=== PATIENT | female | born 1990 | race Caucasian/White ===

== ENCOUNTER 2018-02-15 16:31 | Emergency (ER) | payer OTHER ==
[2018-02-15] MEDS ORDERED: NS 1,000 ML IV ONE (16:43)
--- NOTE | 2018-02-15 16:52 | CPEKG ---
Heart Rate: 60 RR Interval: 1000 P-R Interval: 148 QRSD Interval: 92 QT Interval: 400 QTC Interval: 400 P [place]: 63 QRS [place]: 38 T Wave [place]: 37 EKG Severity - BORDERLINE ECG - EKG Impression: SINUS RHYTHM EKG Impression: PROBABLE LEFT ATRIAL ABNORMALITY Electronically Signed By: Shayna Sanchez 15-Feb-2018 21:04:21
--- NOTE | 2018-02-15 17:14 | EDPHY ---
H & P Time Seen by Provider: 02/15/18 16:43 HPI/ROS: CHIEF COMPLAINT: Palpitations HISTORY OF PRESENT ILLNESS: 23-year-old female with a history of asthma presents with palpitations. Onset of intermittent palpitations yesterday. The palpitations feel like a flip in her chest and then a fluttering sensation. Associated with dizziness today. The palpitations last up to 15 min at a time. No chest pain or shortness of breath. She has a history of palpitations in the past, but has never had the palpitations assessed. REVIEW OF SYSTEMS: Constitutional: No fever, no recent illness Eyes: No visual changes ENT: No sore throat Respiratory: No cough, no shortness of breath Cardiac: No chest pain Gastrointestinal: no vomiting, no abdominal pain Genitourinary: no dysuria Musculoskeletal: No leg pain or swelling Skin: No rash Neurological: No headache, no weakness Psychiatric: No depression Past Medical/Surgical History: Asthma Fibromyalgia Social History: Single Smoking Status: Never smoked Physical Exam: General Appearance: Alert, pleasant Eyes: Pupils equal and round, no conjunctival pallor ENT, Mouth: Mucous membranes moist Neck: Normal inspection Respiratory: Lungs are clear to auscultation Cardiovascular: Regular rate and rhythm, no murmur Gastrointestinal: Abdomen is soft and nontender Neurological: A&O, nonfocal, normal gait Skin: Warm and dry Extremities: Nontender, no pedal edema Psychiatric: Mood and affect normal Constitutional: Initial Vital Signs Temperature (C) 36.8 C 02/15/18 16:36 Heart Rate 64 02/15/18 16:36 Respiratory Rate 18 02/15/18 16:36 Blood Pressure 121/70 H 02/15/18 16:36 O2 Sat (%) 97 02/15/18 16:36 O2 Delivery Mode Room Air Allergies/Adverse Reactions: hydroxychloroquine sulfate [From Plaquenil] Allergy (Mild, Verified 11/14/10 13: 19) Rash Home Medications: Medication Instructions Recorded LYRICA 02/15/18 Singulair 02/15/18 Synthroid 02/15/18 traMADol HCL/ACETAMINOPHEN 02/15/18 Medical Decision Making - Diagnostics EKG Interpretation: EKG interpreted by me reveals NSR, rate 60, normal intervals, no ST/T segment changes. ED Course/Re-evaluation: This pt presents with palpitations. stat EKG reveals no evidence of dysrhythmia. Clinical scenario suggests PVC/PAC's vs SVT. cardiac monitor reveals NSR without ectopy throughout. Labs normal; no electrolyte abn or anemia. Pt will f/u PCP, consider Holter monitoring as outpt. Differential Diagnosis: includes though not limited to SVT, Afib, ventricular dysrhythmia, PAC/PVC. - Data Points Laboratory Results: Laboratory Results 02/15/18 17:08 02/15/18 17:08 Medications Given: Discontinued Medications Sodium Chloride (Ns) 1,000 mls @ 0 mls/hr IV EDNOW ONE; Wide Open PRN Reason: Protocol Stop: 02/15/18 16:44 Last Admin: 02/15/18 17:07 Dose: 1,000 mls Departure - Departure Disposition: Home, Routine, Self-Care Clinical Impression: Palpitations Condition: Good Instructions: Heart Palpitations (ED) Additional Instructions: Return for worsening symptoms or any concerns. Referrals: Parish George MD [Unknown] - As per Instructions (Call to make an appointment.)
[2018-02-15 17:16] LABS: PLATELET COUNT 368 10^3/uL (150-400)
[2018-02-15 18:41] VITALS: BP 105/81
== END 2018-02-15 18:44 | disposition home or self-care (01) ==
DX: R00.2 Palpitations (principal); J45.909 Unspecified asthma, uncomplicated; E86.9 Volume depletion, unspecified

== ENCOUNTER → 2018-07-03 | Outpatient (CLI) | payer OTHER | LOC: BMCIMAGING 16:52 | PROVIDERS: ATTEND Internal Medicine Rheumatology | DX: M25.551 Pain in right hip (principal); M25.552 Pain in left hip; K59.00 Constipation, unspecified ==

== ENCOUNTER 2019-02-03 14:57 | Emergency (ER) | payer OTHER ==
--- NOTE | 2019-02-03 15:16 | EDPHY ---
H & P Time Seen by Provider: 02/03/19 15:08 HPI/ROS: Chief complaint. Chest pain HPI. 28-year-old female presents emergency department with left anterior chest pain for 2 weeks. She has a history of chest pain for 10 years and has had quite a workup. The diagnosis is been connective tissue disease or fibromyalgia. She describes left side chest discomfort with occasional radiation to her left arm. Worse with taking a deep breath. She describes the discomfort is burning. She had a fever the last 2-3 days and has been exposed to the flu. No shortness of breath. No cough. No increased discomfort in her chest with exertion. No unusual leg pain or swelling. No abdominal pain or vomiting or diarrhea ROS 10 systems were reviewed and negative with the exception of the elements mentioned in the history of present illness Past Medical/Surgical History: Chronic chest pain, asthma, rheumatoid "stuff". Fibromyalgia. No family history for early coronary artery disease Social History: Single, nonsmoker, no alcohol Smoking Status: Never smoked Physical Exam: General Appearance: Alert well-developed female mild distress vital signs are stable Eyes: Pupils equal and round no pallor or injection. ENT, Mouth: Mucous membranes are moist. Respiratory: There are no retractions, lungs are clear to auscultation. Cardiovascular: Regular rate and rhythm. Gastrointestinal: Abdomen is soft and nontender, no masses, bowel sounds normal. Neurological: Awake and alert, sensory and motor exams grossly normal. Skin: Warm and dry, no rashes. Musculoskeletal: Neck is supple nontender. Extremities symmetrical, full range of motion. Psychiatric: Patient is oriented X 3, there is no agitation. Constitutional: Initial Vital Signs Temperature (C) 36.8 C 02/03/19 15:02 Heart Rate 81 02/03/19 15:02 Respiratory Rate 16 02/03/19 15:02 Blood Pressure 119/74 02/03/19 15:02 O2 Sat (%) 98 02/03/19 15:02 O2 Delivery Mode Room Air Allergies/Adverse Reactions: hydroxychloroquine sulfate [From Plaquenil] Allergy (Mild, Verified 11/14/10 13: 19) Rash celecoxib [From Celebrex] Allergy (Verified 02/03/19 15:01) ferrous sulfate Allergy (Verified 02/03/19 15:01) Home Medications: Medication Instructions Recorded LYRICA 02/15/18 Synthroid 02/15/18 Bcp 02/03/19 Linzess 02/03/19 Plaquenil 200 mg (*) 02/03/19 Xolair 02/03/19 traMADol 02/03/19 Medical Decision Making - Diagnostics EKG Interpretation: EKG interpreted by me shows normal sinus rhythm with normal interval and axis. QRS is normal there is no significant ST elevation or depression. T-wave inversion in V2. No arrhythmia. The rate is 73 No significant change from previous EKG February 2018 Imaging Results: Imaging Impressions Chest X-Ray 02/03/19 16:23 Impression: Normal chest x-ray. Chest x-ray interpreted by me is normal Procedures: IV normal saline ED Course/Re-evaluation: Re-evaluation 4:45 p.m.. Patient is stable. Patient and I discussed EKG, imaging, laboratory evaluation. We discussed negative D-dimer and negative troponin. We discussed treatment plan including criteria for return importance of follow-up and further evaluation. She expresses understanding and agreement Differential Diagnosis: This may be connective tissue disorder, fibromyalgia. I considered pulmonary embolus, acute coronary syndrome, pneumonia, pneumothorax. - Data Points Laboratory Results: Laboratory Results 02/03/19 15:15 02/03/19 15:15 02/03/19 02/03/19 02/03/19 15:17 15:15 15:15 WBC RBC Hgb Hct MCV MCH MCHC RDW Plt Count MPV Neut % (Auto) Lymph % (Auto) Gordon % (Auto) Eos % (Auto) Baso % (Auto) Nucleat RBC Rel Count Absolute Neuts (auto) Absolute Lymphs (auto) Absolute Monos (auto) Absolute Eos (auto) Absolute Basos (auto) Absolute Nucleated RBC Immature Gran % Immature Gran # D-Dimer 0.31 ug/mLFEU ug/mLFEU (0.00-0.50) Sodium 138 mEq/L mEq/L (135-145) Potassium 3.8 mEq/L mEq/L (3.5-5.2) Chloride 106 mEq/L mEq/L (97-110) Carbon Dioxide 23 mEq/l mEq/l (22-31) Anion Gap 9 mEq/L mEq/L (6-14) BUN 10 mg/dL mg/dL (7-23) Creatinine 0.8 mg/dL mg/dL (0.6-1.0) Estimated GFR > 60 Glucose 72 mg/dL mg/dL (70-100) Calcium 8.8 mg/dL mg/dL (8.5-10.4) POC Troponin I 0.00 ng/mL ng/mL (0.00-0.08) Lipase 72 IU/L IU/L (23-300) 02/03/19 15:15 WBC 5.54 10^3/uL 10^3/uL (3.80-9.50) RBC 4.86 10^6/uL 10^6/uL (4.18-5.33) Hgb 14.2 g/dL g/dL (12.6-16.3) Hct 43.1 % % (38.0-47.0) MCV 88.7 fL fL (81.5-99.8) MCH 29.2 pg pg (27.9-34.1) MCHC 32.9 g/dL g/dL (32.4-36.7) RDW 13.6 % % (11.5-15.2) Plt Count 311 10^3/uL 10^3/uL (150-400) MPV 9.7 fL fL (8.7-11.7) Neut % (Auto) 61.7 % % (39.3-74.2) Lymph % (Auto) 30.1 % % (15.0-45.0) Gordon % (Auto) 7.0 % % (4.5-13.0) Eos % (Auto) 0.5 % L % (0.6-7.6) Baso % (Auto) 0.5 % % (0.3-1.7) Nucleat RBC Rel Count 0.0 % % (0.0-0.2) Absolute Neuts (auto) 3.41 10^3/uL 10^3/uL (1.70-6.50) Absolute Lymphs (auto) 1.67 10^3/uL 10^3/uL (1.00-3.00) Absolute Monos (auto) 0.39 10^3/uL 10^3/uL (0.30-0.80) Absolute Eos (auto) 0.03 10^3/uL 10^3/uL (0.03-0.40) Absolute Basos (auto) 0.03 10^3/uL 10^3/uL (0.02-0.10) Absolute Nucleated RBC 0.00 10^3/uL 10^3/uL (0-0.01) Immature Gran % 0.2 % % (0.0-1.1) Immature Gran # 0.01 10^3/uL 10^3/uL (0.00-0.10) D-Dimer Sodium Potassium Chloride Carbon Dioxide Anion Gap BUN Creatinine Estimated GFR Glucose Calcium POC Troponin I Lipase Point of Care Test Results: Chemistry 02/03/19 15:17 POC Troponin I 0.00 ng/mL ng/mL (0.00-0.08) Departure - Departure Disposition: Home, Routine, Self-Care Clinical Impression: Chest pain Qualifiers: Chest pain type: chest pain on breathing Qualified Code(s): R07.1 - Chest pain on breathing Condition: Good Instructions: Chest Pain (ED) Additional Instructions: Continue regular medication Return for worsening symptoms Follow-up with [facility] for continuing symptoms Referrals: NONE *PRIMARY CARE P,. [Primary Care Provider] - As per Instructions Bertha Gutierrez MD [Medical Doctor] - 2-3 days, if not improved Lady Lorenz MD [Medical Doctor] - 2-3 days, if not improved
--- NOTE | 2019-02-03 15:19 | CPEKG ---
Test Reason : OPEN Blood Pressure : / mmHG Vent. Rate : 073 BPM Atrial Rate : 073 BPM P-R Int : 148 ms QRS Dur : 096 ms QT Int : 381 ms P-R-T Axes : 057 035 027 degrees QTc Int : 420 ms Sinus rhythm Probable left atrial enlargement Confirmed by Sean Hayward ([id number]) on 02/03/2019 3:18:53 PM Referred By: SEAN HAYWARD Confirmed By:Sean Hayward
[2019-02-03 15:26] LABS: PLATELET COUNT 311 10^3/uL (150-400)
[2019-02-03 16:51] VITALS: BP 122/78
== END 2019-02-03 17:02 | disposition home or self-care (01) ==
DX: R07.1 Chest pain on breathing (principal); M79.7 Fibromyalgia
CPT/HCPCS: 84484-ER

== ENCOUNTER → 2019-03-07 | Outpatient (CLI) | payer OTHER ==
[~2019-03-07] MED LIST: IOPAMIDOL (ISOVUE 370) 100 ML BTL IV ONE
== END ==
LOC: CIMAGING 13:37
PROVIDERS: ATTEND Internal Medicine Cardiovascular Disease
DX: R07.9 Chest pain, unspecified (principal)
CPT/HCPCS: 71275-PO; Q9967